=== PATIENT | female | born 1970 | race Caucasian/White ===

== ENCOUNTER 2020-07-14 01:24 | Outpatient (CLI) | payer BC, SELFPAY ==
[2020-07-14 19:18] LABS: SARS-CoV-2 RNA PCR Negative
== END 2020-07-14 01:25 | disposition home or self-care (01) ==
LOC: ANHCOVIDDT 01:24
PROVIDERS: Family Provider Family Medicine; PCP Internal Medicine; Visit Provider Internal Medicine Gastroenterology
DX: Z01.812 Encounter for preprocedural laboratory examination (principal); Z20.822 Contact with and (suspected) exposure to COVID-19
CPT/HCPCS: C9803; U0003; U0005

== ENCOUNTER 2020-07-17 01:02 | Day surgery (SDC) | payer BC, SELFPAY ==
[2020-07-01 12:27] VITALS: BMI 37.6
[2020-07-17 07:51] VITALS: BP 140/71; PULSE 85; RESP 18; TEMP 36.9; O2SAT 98; BMI 38.6
--- NOTE | 2020-07-17 08:06 | WPDGICN ---
Assessment and Plan Assessment and plan (1) Screening for colon cancer: Code(s): Z12.11 - Encounter for screening for malignant neoplasm of colon Status: Acute Assessment and Plan: Patient presents for screening colonoscopy. Patient has a positive colo guard test as an outpatient. Further recommendations will be given after endoscopy. (2) History of gastric bypass: Code(s): Z98.84 - Bariatric surgery status Status: Acute GI Consult Note Consult date/time: 07/17/20 08:06 HPI: Laurita Majano is a 50 year old female Presents for screening colonoscopy. Patient in usual state of health. She states that her weight appetite bowel movements are normal. Patient denies abdominal pain. She states her bowel habits are regular. Patient denies any blood in her stools. She has had no weight loss. Family history is noncontributory. There is no family history of colon or rectal disease. Patient had an outpatient colo guard test that was positive for this reason she presents today for colonoscopy. Patient does have a past history of gastric bypass surgery. Review of Systems Review of Systems: All systems reviewed & are unremarkable except as noted in HPI and below PMFSH Past Medical History Medical History (Updated 04/01/20 @ 16:02 by Marybeth Woods NP) Arterial occlusive disease Bone spur of right foot Chronic pain of left knee Surgical History Surgical History (Updated 07/17/20 @ 08:08 by Roberth Andrews MD) H/O bypass gastroenterostomy History of appendectomy History of cholecystectomy Family History Family History (Updated 04/19/19 @ 07:21 by Nae Salmeron CMA) Mother Family history of cardiovascular disease Family history of malignant neoplasm of uterus Sibling Cardiovascular disease Father COPD (chronic obstructive pulmonary disease) Social History Social History Smoking status: Never smoker Alcohol intake: never Substance use: never Substance use type: does not use Living arrangements: with family Spiritual care concerns: No Meds Home Medications and Allergies Home Medications Medication Instructions Recorded Confirmed Type No Home Medications 07/01/20 07/17/20 History Allergies Allergy/AdvReac Type Severity Reaction Status Date / Time Penicillins Allergy Unknown Rash Verified 07/17/20 07:38 Sulfa (Sulfonamide Allergy Unknown Rash Verified 07/17/20 07:38 Antibiotics) MACROLIDES Allergy Unknown Rash Uncoded 07/17/20 07:38 Vital Signs Vital Signs - 24 hr 07/17/20 07:51 Temperature 98.5 F Pulse Rate 85 Respiratory Rate 18 Blood Pressure 140/71 Pulse Oximetry 98 Exam Narrative: Exam Narrative: Physical exam reveals patient to be alert. Vital signs stable. HEENT exam unremarkable. Lungs are clear to auscultation and percussion. Heart is without murmur or extra sounds. Abdominal exam bowel sounds are present soft nontender with no hepatosplenomegaly. Digital external rectal exam is normal.
[2020-07-17] MEDS: LACTATED RINGERS 1,000 ML 150 ML IV CONT (08:10)
--- NOTE | 2020-07-17 08:20 | WPDANESEPPF ---
Anes - Initial Pre Proc Eval Procedure: Operation Date: 07/17/20 09:00 Proposed Procedures p Colonoscopy - Roberth Andrews MD Date/Time: 07/17/20 08:20 Surgeon: Roberth Andrews MD Pre Op Diagnosis: Positive ColoGuard Patient Data Age: 50 Gender: F Height: 5 ft 7 in Weight: 111.8 kg Last Vital Signs Temp 98.5 F 07/17/20 07:51 Pulse 85 07/17/20 07:51 Resp 18 07/17/20 07:51 BP 140/71 07/17/20 07:51 Pulse Ox 98 07/17/20 07:51 Allergies Allergy/AdvReac Type Severity Reaction Status Date / Time Penicillins Allergy Unknown Rash Verified 07/17/20 07:38 Sulfa (Sulfonamide Allergy Unknown Rash Verified 07/17/20 07:38 Antibiotics) MACROLIDES Allergy Unknown Rash Uncoded 07/17/20 07:38 Home Medications Medication Instructions Recorded Confirmed Type No Home Medications 07/01/20 07/17/20 History Patient hx anesthesia problems: none Family hx anesthesia problems: none PMFSH Past Medical History Medical History (Updated 04/01/20 @ 16:02 by Marybeth Woods NP) Arterial occlusive disease Bone spur of right foot Chronic pain of left knee Surgical History Surgical History (Updated 07/17/20 @ 08:08 by Roberth Andrews MD) H/O bypass gastroenterostomy History of appendectomy History of cholecystectomy Family History Family History (Updated 04/19/19 @ 07:21 by Nae Salmeron CMA) Mother Family history of cardiovascular disease Family history of malignant neoplasm of uterus Sibling Cardiovascular disease Father COPD (chronic obstructive pulmonary disease) Social History Social History Smoking status: Never smoker Alcohol intake: never Substance use: never Substance use type: does not use Living arrangements: with family Spiritual care concerns: No Anes - Eval Final PreProcedure Day of Procedure 07/17/20 08:20 Patient weight: obese Heart: regular rate and rhythm Lungs: clear to auscultation Airway: Mallampati scale class II Neurological: alert and oriented Last oral intake: >/= 8 hours ASA classification: III Emergent: no Anesthetic plan: proceed Anesthesia type and monitoring: general GIVS and standard monitoring Informed Consent: The patient's anesthetic plan and its attendant risks and benefits were discussed with the patient/family/POA. Questions were solicited and answers provided to the satisfaction of the patient/family/POA.
[2020-07-17] MEDS: SIMETHICONE ORAL SUSPENSION 20 MG/0.3 ML 30 ML BOTTLE 0.6 ML IRRIGATION (08:46)
[2020-07-17 08:59] VITALS: BP 113/71; PULSE 78; RESP 23; O2SAT 99
[2020-07-17 09:09] VITALS: BP 119/62; PULSE 64; RESP 18; O2SAT 100
[2020-07-17 09:19] VITALS: BP 123/71; PULSE 70; RESP 20; O2SAT 100
== END 2020-07-17 09:38 | disposition home or self-care (01) ==
PROVIDERS: Family Provider Family Medicine; PCP Internal Medicine; Visit Provider Internal Medicine Gastroenterology
PROC: 0DJD8ZZ Inspection of Lower Intestinal Tract, Via Natural or Artificial Opening Endoscopic (ICD-10-PCS; CPT 45378; principal; 2020-07-17 09:00)
DX: Z12.11 Encounter for screening for malignant neoplasm of colon (principal); K64.8 Other hemorrhoids; Z98.84 Bariatric surgery status; R19.5 Other fecal abnormalities; I73.9 Peripheral vascular disease, unspecified
CPT/HCPCS: 45378; J2704; J7120

== ENCOUNTER 2023-10-02 16:12 | Emergency (ER) | payer BC, SELFPAY ==
--- NOTE | ~2023-10-02 | US_ITS ---
EXAMINATION: US venous doppler [facility] DATE: 10/02/2023 17:29 INDICATION: Left lower limb pain. TECHNIQUE: Grayscale images without and with compression and Doppler images of the left lower extremi ty veins were obtained. COMPARISON: None FINDINGS: The left common femoral vein, profunda (deep) femoral vein, femoral vein, popliteal vein, peroneal v ein, posterior tibial veins, gastrocnemius vein, and greater saphenous vein are patent. IMPRESSION: Patent left lower extremity veins. No evidence of deep venous thrombosis. Reviewed, dictated and finalized at location [facility].
[2023-10-02 16:19] VITALS: BP 145/82; PULSE 81; RESP 14; TEMP 36.6; O2SAT 96
--- NOTE | 2023-10-02 16:57 | ED.GENADULT ---
HPI - General Adult General Chief complaint: Extremity Problem,Nontraumatic <Sharon Moore October, TOP INSTALLER - Last Filed: 10/02/23 17:00> Stated complaint: lower L leg pain. Dr wants to rule out DVT <Sharon Moore October, TOP INSTALLER - Last Filed: 10/02/23 17:00> Time Seen by Provider: 10/02/23 16:57 <Sharon Moore October, TOP INSTALLER - Last Filed: 10/02/23 17:00> Focused HPI: Laurita Majano is a 53 y/o female who present with reports of having a lot of pain to her left lower leg pain that started about 2 months ago and has become progressively worse with exertion/ Pain is to the left lateral calf area and blood clots run in her family and wants to be sure. GENERAL: Well-appearing, well-nourished, and in no acute distress. HEAD: Normocephalic, atraumatic. CHEST: Clear to auscultation. ?No respiratory distress. HEART: Regular rate and rhythm.? NEURO: ?Alert and oriented x3. Patient screened in triage and initial orders placed.? ?Additional care and disposition to be based upon?diagnostic testing and treatment. <Sharon Moore October, TOP INSTALLER - Last Filed: 10/02/23 17:00> History of Present Illness HPI narrative: Agree with HPI <Rachid Gross MD - Last Filed: 10/02/23 20:44> Related Data Home medications: Home Medications Medication Instructions Recorded Confirmed doxycycline hyclate 100 mg tablet 100 mg PO BID 04/10/23 04/10/23 metronidazole 1 % topical cream 1 applic topical DAILY 04/10/23 04/10/23 <Sharon Moore October, TOP INSTALLER - Last Filed: 10/02/23 17:00> Allergies/adverse reactions: Allergies Allergy/AdvReac Type Severity Reaction Status Date / Time erythromycin base Allergy Unknown Rash Verified 10/02/23 16:13 Macrolide Antibiotics Allergy Unknown Rash Verified 10/02/23 16:13 Penicillins Allergy Unknown Rash Verified 10/02/23 16:13 Sulfa (Sulfonamide Allergy Unknown Rash Verified 10/02/23 16:13 Antibiotics) <Sharon Moore October, TOP INSTALLER - Last Filed: 10/02/23 17:00> Review of Systems Cardiovascular: Cardiovascular: Reports no additional cardiovascular complaints <Rachid Gross MD - Last Filed: 10/02/23 20:44> Musculoskeletal: Musculoskeletal: Denies arthralgias, Denies joint swelling and Reports muscle cramps <Rachid Gross MD - Last Filed: 10/02/23 20:44> Integumentary/Breasts: Skin/Breast: Reports system reviewed and no additional complaints, except as docu <Rachid Gross MD - Last Filed: 10/02/23 20:44> Neurologic: Reports system reviewed and no additional complaints, except as documented <Rachid Gross MD - Last Filed: 10/02/23 20:44> PMFSH Past Medical History Medical History: Medical History Arterial occlusive disease Bone spur of right foot Chronic pain of left knee COVID (~07/2020) Obesity <Sharon Norman TOP INSTALLER - Last Filed: 10/02/23 17:00> Surgical History Surgical History: Surgical History H/O bypass gastroenterostomy History of appendectomy History of cholecystectomy <Sharon Norman TOP INSTALLER - Last Filed: 10/02/23 17:00> Family History Family History: Family History Mother Family history of cardiovascular disease Family history of malignant neoplasm of uterus Sibling Cardiovascular disease Father COPD (chronic obstructive pulmonary disease) <Sharon Norman TOP INSTALLER - Last Filed: 10/02/23 17:00> Social History Social History: Social History Social History: Caffeine-soda daily Smoking status: Never smoker Alcohol intake: never Substance use: never Substance use type: does not use Living arrangements: with family Spiritual care concerns: No <Sharon Norman TOP INSTALLER - Last Filed: 10/02/23 17:00> Exam Narrative: GENERAL: Well-appearing, well-nourished, and in no acute distress. HEAD: Normocephalic, atraumatic. HEART:
[2023-10-02 18:22] LABS: Basophils Percent Auto 0.3 % (0.2-1.2); Eosinophils Percent Auto 0.5 % (0-4.4); Hematocrit 40.8 % (37.0-47.0); Hemoglobin 12.9 g/dL (12.0-15.0); Immature Granulocyte Absolute 0.02 K/mm3 (0.00-0.031); Immature Granulocyte Percent A 0.3 % (0-0.5); Lymphocytes Absolute Auto 2.66 K/mm3 (0.9-3.2); Lymphocytes Percent Auto 36.3 % (18.3-44.2); Mean Corpuscular HGB Conc 31.6 g/dl (32-36); Mean Corpuscular Hemoglobin 29.3 pg (26-34); Mean Corpuscular Volume 92.7 fl (80-100); Mean Platelet Volume 8.9 fl (7.4-10.4); Monocytes Absolute Auto 0.6 K/mm3 (0.1-0.6); Monocytes Percent Auto 8.7 % (2.6-8.5); Neutrophils Percent Auto 53.9 % (45.5-73.1); Platelet Count Result 301 k/mm3 (150-375); Red Cell Distribution Width 13.2 % (11.5-14.5); White Blood Count 7.3 K/mm3 (4.5-10.0)
[2023-10-02 18:29] LABS: Anion Gap 4 mmol/L (4-12); Blood Urea Nitrogen 16 mg/dL (7-17); Calcium 9.8 mg/dL (8.4-10.2); Carbon Dioxide 32 mmol/L (22-30); Chloride 105 mmol/L (98-107); Estimated CRCL calculation 136 ml/min; Estimated Glomerular Filt Rate > 60; Glucose 91 mg/dL (65-110); Potassium 4.2 mmol/L (3.4-5.0); Sodium 141 mmol/L (137-145)
[2023-10-02 18:32] LABS: INR 0.9; Prothrombin Time 12.1 Seconds (11.1-14.7)
[2023-10-02 18:33] LABS: Partial Thromboplastin Time 24.4 Seconds (22.3-36.8)
[2023-10-02 20:54] VITALS: BP 138/71; PULSE 72; RESP 16; TEMP 36.6; O2SAT 100
== END 2023-10-02 20:55 | disposition home or self-care (01) ==
PROVIDERS: Nurse Practitioner Family; Emergency Provider Emergency Medicine; PCP Nurse Practitioner
DX: M79.662 Pain in left lower leg (principal)
CPT/HCPCS: 36415; 80048; 85025; 85610; 85730; 93971; 99284

== ENCOUNTER 2024-10-21 07:02 | Outpatient (CLI) | payer BC, SELFPAY ==
--- NOTE | ~2024-10-21 | MR_ITS ---
MRI of the lumbar spine Clinical History: Lumbar disc syndrome Technique: Axial T2-weighted images, and sagittal T1-weighted, T2-weighted, and T2 fat-sat images wer e acquired. Findings: No fracture seen. There is minimal grade 1 retrolisthesis of L2 over L3. There is minimal g rade 1 anterolisthesis of L4 over L5. No suspicious bone marrow signal reality seen. At L1-L2, there is no disc bulge or herniation. No spinal canal stenosis or neural foraminal narrowin g. At L2-L3, there is advanced degenerative disc narrowing. There is minimal disc bulge and minimal face t joint degenerative change. No spinal canal stenosis or neural foraminal narrowing. At L3-L4, there is no significant disc bulge or herniation. There is minimal facet arthropathy. No ce ntral canal stenosis or neural foraminal narrowing. At L4-L5, there is advanced degenerative disc narrowing with diffuse disc bulge. There is minimal fac et arthropathy. No central canal stenosis. There is moderate left neural foraminal narrowing, and sev ere right neural foraminal narrowing. At L5-S1, there is minimal disc bulge and mild facet arthropathy. No central canal stenosis or neural foraminal narrowing. Paravertebral soft tissues are unremarkable. Impression: Moderate to advanced degenerative spondylosis at L4-L5, with degenerative disc narrowing and signific ant bilateral neural foraminal narrowing. Please see details above. Mild degenerative changes otherwise. Reviewed, dictated and finalized at [facility]. Impression: Moderate to advanced degenerative spondylosis at L4-L5, with degenerative disc narrowing and significant bilateral neural foraminal narrowing. Please see deta ils above. Mild degenerative changes otherwise.
== END 2024-10-21 07:03 | disposition home or self-care (01) ==
PROVIDERS: PCP Internal Medicine; Visit Provider Chiropractor
DX: M48.061 Spinal stenosis, lumbar region without neurogenic claudication (principal); M48.07 Spinal stenosis, lumbosacral region
CPT/HCPCS: 72148

== ENCOUNTER 2025-04-29 13:57 | Outpatient (CLI) | payer BC, SELFPAY ==
--- NOTE | 2025-04-29 14:29 | ECG_ITS ---
Test Date: 2025-04-29 14:41:17 Measurements Intervals [place] Rate: 79 P: 32 MN: 131 QRS: 35 QRSD: 85 T: 16 QT: 349 QTc: 400 Interpretive Statements SINUS RHYTHM CANNOT RULE OUT ANTERIOR MYOCARDIAL INFARCTION, AGE INDETERMINATE ABNORMAL ECG Electronically Signed On 04-29-2025 16:02:04 [employer] by Tony Yost M.D.
[2025-04-29 15:08] LABS: INR 0.9; Prothrombin Time 12.0 Seconds (11.1-14.7)
[2025-04-29 15:09] LABS: Partial Thromboplastin Time 23.6 Seconds (22.3-36.8)
[2025-04-29 15:14] LABS: Add Urine Microscopic? YES; Appearance Urine Turbid (Clear); Glucose Urine UA Negative (Negative); Leukocyte Esterase Ur Negative LEU/UL (Negative); Need Manual Microscopic Reviewed; Nitrate Urine Negative (Negative); Non Pathogenic Casts 0-2; Specific Grav Ur 1.021 (1.001-1.035)
== END 2025-04-29 13:58 | disposition home or self-care (01) ==
LOC: ANHSURGERY 14:00
PROVIDERS: PCP Internal Medicine; Visit Provider Neurological Surgery
DX: R94.31 Abnormal electrocardiogram [ECG] [EKG] (principal); M54.16 Radiculopathy, lumbar region
CPT/HCPCS: 36415; 81001; 85610; 85730; 93005

== ENCOUNTER 2025-05-17 13:54 | Emergency (ER) | payer BC, SELFPAY ==
--- NOTE | 2025-05-17 13:57 | ED_ITS ---
HPI - URI/Sore Throat General Chief Complaint: Upper Respiratory Infection Stated Complaint: Sore Throat/Fever Time Seen by Provider: 05/17/25 13:55 Source: patient Mode of arrival: ambulatory Limitations: no limitations History of Present Illness HPI Narrative: Patient is a 55-year-old female who presents with sore throat and fever that started yesterday. Patient just got back from [place] yesterday. Patient has surgery on Monday and wants to make sure she is not contagious in able to have her surgery. Denies any congestion, chills, nausea vomiting, diarrhea. Has not taken anything for symptoms Related Data Home Medications ?Medication ?Instructions ?Recorded ?Confirmed ?Last Taken ?Type metronidazole 1 % topical cream 1 applic topical DAILY 04/10/23 04/29/25 Unknown History xgoaqxxy-mks-hafxy ac 400 tablet PO DAILY 04/29/25 Un known History mcg-calcium carb 500 mg-vit K1 20 mcg tablet (One Daily Women 50 Plus(Vit K)) doxycycline monohydrate 100 mg mg 05/17/25 Unknown Hi story capsule Allergies Allergy/AdvReac Type Severity Reaction Status Date / Time erythromycin base Allergy Unknown Rash Verified 05/17/25 14:01 Macrolide Antibiotics Allergy Unknown Rash Verified 05/17/25 14:01 Penicillins Allergy Unknown Rash Verified 05/17/25 14:01 Sulfa (Sulfonamide Allergy Unknown Rash Verified 05/17/25 14:01 Antibiotics) Review of Systems Review of Systems: All systems reviewed & are unremarkable except as noted in HPI and below Constitutional: Constitutional: Denies chills, Denies fatigue, Reports fever(s), Denies headache(s), Denies malaise and Denies weakness Eyes: Eyes: Denies blurry vision, Denies itchy eyes and Denies loss of vision ENT: Denies otalgia, Denies headache(s), Denies nasal congestion, Denies sinus pain and Reports sore throat Cardiovascular: Cardiovascular: Denies chest pain, Denies irregular heart rhythm and Denies dyspnea Respiratory: Respiratory: Denies cough and Denies dyspnea Gastrointestinal: Gastrointestinal: Denies abdominal pain, Denies diarrhea, Denies nausea and Denies vomiting Musculoskeletal: Musculoskeletal: Denies back pain, Denies myalgias and Denies arthralgias Integumentary/Breasts: Skin/Breast: Denies pruritus and Denies rash Neurologic: Denies headache(s), Denies loss of vision and Denies weakness Psychiatric: Psychiatric: Reports no additional psychiatric complaints Endocrine: Endocrine: Denies fatigue Allergic/Immunologic: Allergic/Immunologic: Denies itchy eyes PMFSH Past Medical History Medical History Obesity COVID (~07/2020) Bone spur of right foot Arterial occlusive disease Chronic pain of left knee Surgical History Surgical History H/O bypass gastroenterostomy History of cholecystectomy History of appendectomy Family History Family History Mother Family history of cardiovascular disease Family history of malignant neoplasm of uterus Sibling Cardiovascular disease Father COPD (chronic obstructive pulmonary disease) Social History Social History Social History: Caffeine-soda daily Smoking status: Never smoker Alcohol intake: never Substance use: never Substance use type: does not use Lack of Transportation: No Lack of Food: Never True Current Housing: I Have Housing Concerned About Future Housing: No Difficulty Paying Gas/Electric Bills: No Difficulty Paying for Meds: No Currently Unemployed: No Education: Bachelor's Degree Difficulty w/ Childcare or Family Care: No Living arrangements: with family Spiritual care concerns: No Comments At time of signature, agree with nursing past medical, surgical, social and family history. There is no relevant family history pertinent to the presenting complaint. Exam Const: General: cooperative, healthy appearing, comfortable, no acute distress and well nourished Nutritional Appearance: well nourished Orientation/consciousness: patient oriented x3 Limitations: no limitations HENMT: Head: normal to inspection, normocephalic and atraumatic Ears: hearing grossly normal bilaterally, external ears normal, TM's normal bilaterally, EAC's normal and no periauricular adenopathy Face/Nose/Sinus: Normal external nose present, Abnormal mucous membranes and turbinates present erythematous bilateral and diffuse, normal facial exam, sinuses nontender and face symmetric Face and sinus: normal facial exam, sinuses nontender and face symmetric Mouth: Yes Normal oral and palatal mucosa present, Yes lip normal, Yes tongue normal, Yes Normal salivary glands and ducts present, Yes oropharynx normal and Yes moist mucous membranes Teeth and gingiva: dentition normal Throat: posterior oropharynx normal, tonsils normal and uvula midline Eyes: General: appearance normal, both eyes and all related structures Alignment and Position: alignment normal and position normal Periorbital: periorbital findings normal Eyelids: eyelids normal Pupils: Equal, round and reactive pupils present Neck: Neck: normal visual inspection, full ROM, no lymphadenopathy and supple Chest: Chest palpation & inspection: normal inspection of the chest and normal palpation of entire chest wall Resp: Effort & Inspection: normal respiratory effort and able to speak in complete sentences Auscultation: clear to auscultation bilaterally, no crackles, no rales, no rhonchi and no wheezes Cardio: Rate: regular rate Rhythm: regular rhythm Heart sounds: S1 normal heart sound present and S2 normal heart sound present GI: Inspection: normal to inspection Skin: General skin exam: normal color and no rashes or lesions noted Neuro: General: patient oriented x3 and moves all extremities Cranial nerves: Yes Equal, round and reactive pupils present Speech: normal speech Gait exam (Neuro): Normal gait present Extrem: General: normal to inspection, full ROM and no edema Psych: Appearance: grossly normal and well kempt Mental Status: mental status grossly normal Speech and movement: Normal speech and movement present Affect: normal affect Attitude: cooperative Thought process: Normal thought process present Course Course Emergency Course: Patient is aware of diagnosis, understands and agrees to treatment plan. Anticipatory guidance given. Patient agrees to follow-up as directed and is aware of reasons to seek care at the emergency department. Portions of this record may have been created with voice recognition software Level of Care: Express Care Visit Vital Signs Vital signs: Vital Signs Temperature 37.0 C 05/17/25 14:11 Pulse Rate 72 05/17/25 14:11 Respiratory Rate 16 05/17/25 14:11 Blood Pressure 141/77 H 05/17/25 14:11 Pulse Oximetry 100 05/17/25 14:11 Temperature 37.0 C 05/17/25 14:11 Pulse Rate 72 05/17/25 14:11 Respiratory Rate 16 05/17/25 14:11 Blood Pressure 141/77 H 05/17/25 14:11 Pulse Oximetry 100 05/17/25 14:11 [facility] MDM Narrative Medical decision making narrative: Rapid COVID, flu, strep were negative. A throat culture is pending. Symptoms likely viral in etiology. Pt well hydrated appearing, in no respiratory distress, hemodynamically stable. Recommend supportive care. The patient is stable at time of discharge the clinical impression was discussed and the patient was given the opportunity to ask questions, which were addressed as completely as possible given the information available at present. Anticipatory guidance and return to care precautions were discussed and the importance of primary care follow-up was stressed and encouraged. The patient voiced understanding of the plan, indications to return, and the need for follow-up. Exam findings show no acute concerns or changes Patient is appropriate for outpatient treatment and follow-up. Differential Diagnosis Differential Diagnosis: Differential diagnosis considered: [place] virus, strep pharyngitis, allergic rhinitis, upper respiratory tract infection, sinusitis, rhinosinusitis, nasopharyngitis. viral pharyngitis, otitis media, otitis externa, otitis effusion, foreign body, cerumen impaction, viral syndrome, and influenza. Medical Records I have reviewed the following patient records and this information was taken i nto consideration when formulating the assessment and plan.: previous clinic visits Lab Data Labs: Lab Results 05/17/25 05/17/25 Range/Units 14:17 14:23 POC Influenza A Ag Negative (Negative) POC Influenza B Ag Negative (Negative) POC SARS CoV-2 Ag Negative (Negative) POC Grp A Strep Screen Negative (Negative) Discharge Plan Discharge Clinical Impression: Upper respiratory infection Qualifiers: URI type: unspecified viral URI Qualified Code(s): J06.9 - Acute upper respiratory infection, unspecified Patient Disposition: Home Condition: Stable Instructions: Upper Respiratory Infection (ED) Additional Instructions: Your rapid strep swab was negative today at [facility]. A throat culture will be sent to the laboratory for further testing. If the test is positive, you will receive a phone call within 48 hours and an appropriate antibiotic will be initiated at that time. Your Covid and flu are both negative Your symptoms are likely due to a viral illness, which is not treated with antibiotics. Viral symptoms can be present for up to a few weeks. -For pain/fever, you may take: Tylenol 650-1000mg by mouth every 4-6 hours. Do not exceed 4000mg in 24 hours. Advil (Ibuprofen) 600 mg by mouth every 6 hours. Do not exceed 2400mg in 24 hours. 8 AM: Tylenol 11 AM: Ibuprofen 2 PM: Tylenol 5 PM: Ibuprofen 8 PM: Tylenol 11 PM: Ibuprofen 2 AM: Tylenol 5 AM: Ibuprofen -Antihistamine medication such as Benadryl/Zyrtec at night and Claritin/Traci during the day can help improve symptoms. -Use Flonase twice a day for 5 days then daily to help reduce the inflammation and dry up your sinuses. -You can also use Sudafed behind the pharmacy counter(12 or 24 hour). Be sure to drink plenty of water with these medications at least 8 ounces with every dose and it is important to drink 8 to 10 glasses of water per day. Water is a natural decongestant -Eat and drink things that are easy to swallow, like tea or soup, or popsicles. -Oral rinses such as: Salt water gargles and/or may use topical anesthetic (eg. Chloraseptic spray) or lozenges to relieve dryness or throat pain). -Frequent hand washing or hand rn burn is one of the best ways to prevent spread of infection. -Using a vaporizer or humidifier at night will also help thin secretions and help with coughing up phlegm. Call your Primary Care Doctor and make a follow-up appointment in 3 days. If your cough worsens, you develop a fever greater than 103, you develop shaking chills, a fast heartbeat, trouble breathing and/or feel you are are breathing much faster than usual, call your Primary Care Doctor or go to the ER. Patient Language: Upper Sorbian Prescriptions: No Action doxycycline monohydrate 100 mg capsule metronidazole 1 % cream 1 applic topical DAILY Rx Instructions: DERM One Daily Women 50 Plus(Vit K) 400 mcg-500 mg calcium-20 mcg tablet PO DAILY cholecalciferol (vitamin D3) 125 mcg (5,000 unit) capsule 125 mcg PO DAILY Qty: 90 3RF Wegovy 2.4 mg/0.75 mL pen injector 2.4 mg subcut WEEKLY Qty: 3 3RF Patient Comments: for weight loss. tramadol 50 mg tablet 50 mg PO BID PRN (Reason: pain) Qty: 60 0RF Follow-up/Referrals: Antonio Ahuja DO [Primary Care Provider, Internal Medicine] - 3 Days Stand Alone Forms: Work/School Release IP Time of Disposition: 15:26
[2025-05-17 14:11] VITALS: BP 141/77; PULSE 72; RESP 16; TEMP 37; O2SAT 100
[2025-05-17 14:18] LABS: EDSTREPNEGPOS1 Negative (Negative)
[2025-05-17 14:25] LABS: EDCOVIDSCREEN Negative (Negative); EDINFLUASCREEN Negative (Negative); EDINFLUBSCREEN Negative (Negative)
== END 2025-05-17 15:29 | disposition home or self-care (01) ==
PROVIDERS: Emergency Provider Nurse Practitioner Family; PCP Internal Medicine
DX: J06.9 Acute upper respiratory infection, unspecified (principal); Z20.822 Contact with and (suspected) exposure to COVID-19; I70.90 Unspecified atherosclerosis; E66.9 Obesity, unspecified; Z68.29 Body mass index [BMI] 29.0-29.9, adult; Z86.16 Personal history of COVID-19
CPT/HCPCS: 87081; 87426; 87804; 87880; 99213; G0463